=== PATIENT | male | born 1940 | race Caucasian/White ===

== ENCOUNTER 2023-12-31 16:47 | Inpatient (IN) ==
[2023-12-31] MEDS ORDERED: IOPAMIDOL 100 ML BOTTLE IV ONE (16:48)
[2023-12-31] MEDS: morphine 4 MG/ML VIAL IV ONE (17:31)
[2023-12-31] MEDS: ONDANSETRON 4 MG/2 ML VIAL IV ONE (17:34)
[2023-12-31 17:44] LABS: Basophils # (Auto) 0.03 K/mcL (0.00-0.30); Basophils % (Auto) 0.3 % (0.0-2.0); Eosinophils # (Auto) 0.02 K/mcL (0.00-0.70); Eosinophils % (Auto) 0.2 % (0.0-7.0); Hematocrit 35.6 % (40.1-51.0); Hemoglobin 12.2 g/dL (13.7-17.5); Lymphocytes # (Auto) 0.82 K/mcL (1.50-4.80); Lymphocytes % (Auto) 7.4 % (15.5-49.0); Mean Cell Volume 102.3 fL (80.0-100.0); Mean Corpuscular HGB Conc 34.3 g/dL (31.0-36.0); Mean Platelet Volume 9.7 fL (8.8-12.5); Monocytes # (Auto) 0.91 K/mcL (0.10-0.90); Monocytes % (Auto) 8.2 % (1.0-12.0); Neutrophils % (Auto) 83.8 % (38.0-78.0); Platelet Count 245 K/mcL (140-440); RBC 3.48 M/mcL (4.63-6.08); Red Cell Distribution Width 14.2 % (11.5-14.5); WBC 11.1 K/mcL (4.5-11.0)
[2023-12-31 18:00] LABS: ALT/SGPT 22 U/L (<40); AST/SGOT 41 U/L (<40); Albumin 4.1 gm/dL (3.2-5.2); Albumin/Globulin Ratio 1.7 (1.0-2.3); Alkaline Phosphatase 73 U/L (39-117); Bilirubin,Total 0.6 mg/dL (0.1-1.0); Blood Urea Nitrogen 32 mg/dL (8-23); Calcium 9.1 mg/dL (8.6-10.4); Carbon Dioxide 20 mmol/L (22-30); Chloride 100 mmol/L (96-108); Globulin 2.4 gm/dL (2.2-3.7); Glomerular Filtration Rate 70; Glucose 124 mg/dL (70-105); Potassium 4.9 mmol/L (3.3-5.1); Sodium 134 mmol/L (133-145)
[2023-12-31 19:47] LABS: Appearance,Urine Clear (Clear); Bacteria,Urine 0 /hpf (0); Bilirubin,Urine Negative (Negative); Color,Urine Yellow; Culture Indicated,Urine No; Glucose,Urine (UA) Negative (Negative); Ketones,Urine Negative (Negative); Leukocyte Esterase,Urine Negative /uL (Negative); Nitrate,Urine Negative (Negative); Protein,Urine Negative (Negative); Specific Gravity,Urine 1.015 (1.000-1.035); Urine Blood Negative ery/mcL (Negative); Urine RBC 0 /hpf (0-3); Urine Squamous Epithelial Cell 0 /hpf (0-4); Urine WBC 0 /hpf (0-4); Urobilinogen,Urine Normal
[2023-12-31] MEDS: HYDROmorphone 0.5 MG/0.5 ML SYRINGE IV ONE (21:06)
[2023-12-31] MEDS: PANTOPRAZOLE 40 MG VIAL IV SCH (21:08)
[2023-12-31] MEDS: DEXTROSE 5%-LR 1,000 ML IV SCH (21:13)
[2023-12-31] MEDS: PIPERACILLIN SODIUM/TAZOBACTAM 3.375 GM in DEXTROSE 5% IN WATER 100 ML IV SCH (22:26)
[2023-12-31] MEDS: HYDROmorphone 0.5 MG/0.5 ML SYRINGE IV PRN (23:23)
[2024-01-01] MEDS: ACETAMINOPHEN 650 MG/65 ML BAG IV PRN (02:23)
[2024-01-01 07:18] LABS: ALT/SGPT 20 U/L (<40); AST/SGOT 22 U/L (<40); Albumin 4.3 gm/dL (3.2-5.2); Albumin/Globulin Ratio 1.7 (1.0-2.3); Alkaline Phosphatase 86 U/L (39-117); Bilirubin,Total 0.9 mg/dL (0.1-1.0); Blood Urea Nitrogen 28 mg/dL (8-23); Calcium 9.3 mg/dL (8.6-10.4); Carbon Dioxide 23 mmol/L (22-30); Chloride 96 mmol/L (96-108); Globulin 2.6 gm/dL (2.2-3.7); Glomerular Filtration Rate 62; Glucose 159 mg/dL (70-105); Sodium 135 mmol/L (133-145)
[2024-01-01 07:34] LABS: Hematocrit 41.8 % (40.1-51.0); Mean Cell Volume 104.2 fL (80.0-100.0); Mean Corpuscular HGB Conc 33.5 g/dL (31.0-36.0); Mean Platelet Volume 9.5 fL (8.8-12.5); Platelet Count 277 K/mcL (140-440); RBC 4.01 M/mcL (4.63-6.08); Red Cell Distribution Width 14.2 % (11.5-14.5); WBC 14.7 K/mcL (4.5-11.0)
[2024-01-01] MEDS: CIPROFLOXACIN 400 MG/200 ML BAG IV SCH (15:48)
[2024-01-01] MEDS ORDERED: hydrALAZINE 20 MG/ML VIAL IV PRN (16:13)
[2024-01-01] MEDS ORDERED: PROMETHAZINE 50 MG/ML AMPUL IM PRN (17:39)
[2024-01-02 07:03] LABS: Basophils # (Auto) 0.02 K/mcL (0.00-0.30); Basophils % (Auto) 0.2 % (0.0-2.0); Eosinophils # (Auto) 0.03 K/mcL (0.00-0.70); Eosinophils % (Auto) 0.2 % (0.0-7.0); Hematocrit 36.5 % (40.1-51.0); Hemoglobin 12.5 g/dL (13.7-17.5); Lymphocytes # (Auto) 0.63 K/mcL (1.50-4.80); Lymphocytes % (Auto) 4.8 % (15.5-49.0); Mean Cell Volume 102.5 fL (80.0-100.0); Mean Corpuscular HGB Conc 34.2 g/dL (31.0-36.0); Monocytes # (Auto) 1.64 K/mcL (0.10-0.90); Monocytes % (Auto) 12.6 % (1.0-12.0); Neutrophils % (Auto) 81.9 % (38.0-78.0); Platelet Count 257 K/mcL (140-440); RBC 3.56 M/mcL (4.63-6.08); Red Cell Distribution Width 14.3 % (11.5-14.5)
[2024-01-02 07:11] LABS: Phosphorous 2.2 mg/dL (2.5-4.5)
[2024-01-02 07:25] LABS: ALT/SGPT 13 U/L (<40); AST/SGOT 17 U/L (<40); Albumin 3.7 gm/dL (3.2-5.2); Albumin/Globulin Ratio 1.6 (1.0-2.3); Alkaline Phosphatase 75 U/L (39-117); Bilirubin,Total 1.1 mg/dL (0.1-1.0); Blood Urea Nitrogen 21 mg/dL (8-23); Calcium 9.1 mg/dL (8.6-10.4); Carbon Dioxide 26 mmol/L (22-30); Chloride 96 mmol/L (96-108); Globulin 2.3 gm/dL (2.2-3.7); Glomerular Filtration Rate 70; Glucose 147 mg/dL (70-105); Sodium 133 mmol/L (133-145)
[2024-01-02] MEDS ORDERED: fentaNYL 100 MCG/2 ML VIAL ONE (10:31)
[2024-01-02] MEDS ORDERED: PROPOFOL 200 MG/20 ML VIAL IV ONE (10:31)
[2024-01-02] MEDS ORDERED: MIDAZOLAM 2 MG/2 ML VIAL ONE (10:31)
[2024-01-02] MEDS ORDERED: ROCURONIUM 10 MG/ML ML IV ONE (12:14)
[2024-01-02] MEDS ORDERED: SUCCINYLCHOLINE 200 MG/10 ML VIAL IV ONE (12:14)
[2024-01-02] MEDS ORDERED: ETOMIDATE 20 MG/10 ML VIAL IV ONE (12:14)
[2024-01-02] MEDS ORDERED: LIDOCAINE 2% PF 5 ML VIAL ONE (12:14)
[2024-01-02] MEDS ORDERED: MAGNESIUM SULFATE 2 GM/50 ML BAG IV ONE (12:41)
[2024-01-02] MEDS ORDERED: SUGAMMADEX SODIUM 200 MG/2 ML VIAL IV ONE (12:42)
[2024-01-02] MEDS ORDERED: GLYCOPYRROLATE 0.2 MG/ML VIAL IV ONE (12:43)
[2024-01-02] MEDS ORDERED: ONDANSETRON 4 MG/2 ML VIAL IV PRN (12:49)
[2024-01-02] MEDS ORDERED: IPRATROPIUM/ALBUTEROL 3 ML AMPUL.NEB NEB PRN ×2 (12:49→13:45)
[2024-01-02] MEDS: BACITRACIN TOPICAL OINT 15 GM TUBE TOPICAL ONE (13:45)
[2024-01-02] MEDS: fentaNYL 100 MCG/2 ML VIAL IV PRN (13:54)
[2024-01-02] MEDS: HYDROmorphone 0.5 MG/0.5 ML SYRINGE IV PRN (14:07)
[2024-01-03] MEDS: ACETAMINOPHEN 1,000 MG/100 ML BAG IV SCH (00:04)
[2024-01-03 06:36] LABS: Hematocrit 33.2 % (40.1-51.0); Hemoglobin 11.1 g/dL (13.7-17.5); Mean Cell Volume 104.1 fL (80.0-100.0); Mean Corpuscular HGB Conc 33.4 g/dL (31.0-36.0); Mean Platelet Volume 9.7 fL (8.8-12.5); Platelet Count 212 K/mcL (140-440); RBC 3.19 M/mcL (4.63-6.08); Red Cell Distribution Width 14.4 % (11.5-14.5); WBC 8.6 K/mcL (4.5-11.0)
[2024-01-03 07:08] LABS: ALT/SGPT 11 U/L (<40); AST/SGOT 19 U/L (<40); Albumin/Globulin Ratio 1.4 (1.0-2.3); Alkaline Phosphatase 66 U/L (39-117); Bilirubin,Total 0.9 mg/dL (0.1-1.0); Blood Urea Nitrogen 17 mg/dL (8-23); Calcium 8.2 mg/dL (8.6-10.4); Carbon Dioxide 26 mmol/L (22-30); Chloride 98 mmol/L (96-108); Globulin 2.2 gm/dL (2.2-3.7); Glomerular Filtration Rate 79; Glucose 134 mg/dL (70-105); Potassium 3.9 mmol/L (3.3-5.1); Sodium 132 mmol/L (133-145)
[2024-01-04 06:36] LABS: Hematocrit 33.4 % (40.1-51.0); Hemoglobin 11.2 g/dL (13.7-17.5); Mean Corpuscular HGB Conc 33.5 g/dL (31.0-36.0); Mean Platelet Volume 9.5 fL (8.8-12.5); Platelet Count 215 K/mcL (140-440); RBC 3.21 M/mcL (4.63-6.08); Red Cell Distribution Width 14.2 % (11.5-14.5); WBC 7.4 K/mcL (4.5-11.0)
[2024-01-04 07:03] LABS: ALT/SGPT 10 U/L (<40); AST/SGOT 19 U/L (<40); Albumin/Globulin Ratio 1.3 (1.0-2.3); Alkaline Phosphatase 90 U/L (39-117); Bilirubin,Total 0.9 mg/dL (0.1-1.0); Blood Urea Nitrogen 15 mg/dL (8-23); Calcium 8.4 mg/dL (8.6-10.4); Carbon Dioxide 25 mmol/L (22-30); Chloride 98 mmol/L (96-108); Globulin 2.3 gm/dL (2.2-3.7); Glomerular Filtration Rate 79; Glucose 119 mg/dL (70-105); Potassium 3.7 mmol/L (3.3-5.1); Sodium 133 mmol/L (133-145)
[2024-01-04] MEDS: HEPARIN 5,000 UNIT/ML VIAL SQ SCH (21:12)
[2024-01-05] MEDS ORDERED: METHOTREXATE SODIUM 2.5 MG TABLET PO SCH (09:00)
[2024-01-05] MEDS: DEXTROSE 5%-LR 1,000 ML IV SCH (14:05)
[2024-01-06 07:00] LABS: Hemoglobin 11.5 g/dL (13.7-17.5); Mean Cell Volume 103.7 fL (80.0-100.0); Mean Corpuscular HGB Conc 33.8 g/dL (31.0-36.0); Mean Platelet Volume 9.5 fL (8.8-12.5); Platelet Count 256 K/mcL (140-440); RBC 3.28 M/mcL (4.63-6.08); Red Cell Distribution Width 14.1 % (11.5-14.5); WBC 6.3 K/mcL (4.5-11.0)
[2024-01-06 07:53] LABS: Blood Urea Nitrogen 12 mg/dL (8-23); Calcium 8.7 mg/dL (8.6-10.4); Carbon Dioxide 22 mmol/L (22-30); Chloride 101 mmol/L (96-108); Glomerular Filtration Rate 70; Glucose 121 mg/dL (70-105); Potassium 4.1 mmol/L (3.3-5.1); Sodium 135 mmol/L (133-145)
[2024-01-07] MEDS: METOCLOPRAMIDE 10 MG/2 ML VIAL IV SCH (12:14)
[2024-01-07] MEDS: HYDROmorphone 0.5 MG/0.5 ML SYRINGE IV PRN (18:14)
[2024-01-08 06:43] LABS: Basophils # (Auto) 0.07 K/mcL (0.00-0.30); Basophils % (Auto) 1.1 % (0.0-2.0); Eosinophils # (Auto) 0.38 K/mcL (0.00-0.70); Eosinophils % (Auto) 6.2 % (0.0-7.0); Hemoglobin 10.8 g/dL (13.7-17.5); Lymphocytes # (Auto) 1.11 K/mcL (1.50-4.80); Mean Cell Volume 102.9 fL (80.0-100.0); Mean Corpuscular HGB Conc 33.8 g/dL (31.0-36.0); Mean Platelet Volume 9.1 fL (8.8-12.5); Monocytes % (Auto) 21.1 % (1.0-12.0); Neutrophils % (Auto) 53.1 % (38.0-78.0); Platelet Count 238 K/mcL (140-440); RBC 3.11 M/mcL (4.63-6.08); WBC 6.2 K/mcL (4.5-11.0)
[2024-01-08] MEDS ORDERED: GLUCOSAMINE CHONDROITIN PO SCH (09:00)
[2024-01-08] MEDS ORDERED: MULTIVITAMIN MINERALS LUTEIN PO SCH (09:00)
[2024-01-08] MEDS ORDERED: VITAMIN E ACETATE PO SCH (09:00)
[2024-01-08] MEDS: FOLIC ACID 1 MG TABLET PO SCH (10:30)
[2024-01-08] MEDS: LOSARTAN 50 MG TABLET PO SCH (10:30)
[2024-01-08] MEDS: FERROUS SULFATE 325 MG TABLET PO SCH (10:31)
[2024-01-08] MEDS: predniSONE 5 MG TABLET PO SCH (10:31)
[2024-01-08] MEDS: ASCORBIC ACID 500 MG TABLET PO SCH (10:31)
[2024-01-08] MEDS: FINASTERIDE 5 MG TABLET PO SCH (10:31)
[2024-01-08] MEDS: LEVOTHYROXINE 50 MCG TABLET PO SCH (10:31)
[2024-01-09 12:33] VITALS: TEMP 97.7; O2SAT 96
[2024-01-09] MEDS: FUROSEMIDE 40 MG/4 ML VIAL IV SCH (13:54)
== END 2024-01-09 14:20 | disposition home or self-care (01) | DRG 337 ==
LOC: ED 16:47 → MEDSUR 20:38
PROVIDERS: ADMIT Surgery Surgical Critical Care; ATTEND Surgery Surgical Critical Care

== ENCOUNTER 2025-04-23 12:06 | Inpatient (IN) ==
[2025-04-23] MEDS ORDERED: IOPAMIDOL 100 ML BOTTLE IV ONE (12:07)
[2025-04-23 13:06] LABS: Basophils # (Auto) 0.02 K/mcL (0.00-0.30); Basophils % (Auto) 0.2 % (0.0-2.0); Eosinophils # (Auto) 0.11 K/mcL (0.00-0.70); Eosinophils % (Auto) 1.0 % (0.0-7.0); Hematocrit 34.1 % (40.1-51.0); Hemoglobin 11.4 g/dL (13.7-17.5); Lymphocytes # (Auto) 1.29 K/mcL (1.50-4.80); Lymphocytes % (Auto) 12.1 % (15.5-49.0); Mean Corpuscular HGB Conc 33.4 g/dL (31.0-36.0); Monocytes # (Auto) 0.88 K/mcL (0.10-0.90); Monocytes % (Auto) 8.2 % (1.0-12.0); Neutrophils % (Auto) 78.4 % (38.0-78.0); Platelet Count 196 K/mcL (140-440); RBC 3.33 M/mcL (4.63-6.08); WBC 10.7 K/mcL (4.5-11.0)
[2025-04-23 13:24] LABS: ALT/SGPT 24 U/L (<40); AST/SGOT 21 U/L (<40); Albumin 4.0 gm/dL (3.2-5.2); Albumin/Globulin Ratio 1.6 (1.0-2.3); Alkaline Phosphatase 90 U/L (39-117); Anion Gap 11.0 (8.0-16.0); Bilirubin,Total 0.3 mg/dL (0.1-1.0); Blood Urea Nitrogen 34 mg/dL (8-23); Calcium 9.0 mg/dL (8.6-10.4); Carbon Dioxide 23 mmol/L (22-30); Chloride 105 mmol/L (96-108); Globulin 2.5 gm/dL (2.2-3.7); Glucose 114 mg/dL (70-105); Potassium 3.9 mmol/L (3.3-5.1); Sodium 139 mmol/L (133-145)
[2025-04-23] MEDS: 0.9 % SODIUM CHLORIDE 1,000 ML IV ONE (14:23)
[2025-04-23] MEDS ORDERED: hydrALAZINE 20 MG/ML VIAL IV PRN (14:35)
[2025-04-23] MEDS: PYRIDOSTIGMINE BROMIDE 10 MG/2 ML AMPUL IV SCH ×2 (16:55→23:05)
[2025-04-23] MEDS: HYDROmorphone 0.5 MG/0.5 ML SYRINGE IV PRN (16:55)
[2025-04-23] MEDS: METOCLOPRAMIDE 10 MG/2 ML VIAL IV SCH (17:06)
[2025-04-23] MEDS: LACTATED RINGERS 1,000 ML IV SCH (17:07)
[2025-04-24 06:30] LABS: Basophils # (Auto) 0 K/mcL (0.00-0.30); Basophils % (Auto) 0 % (0.0-2.0); Eosinophils # (Auto) 0 K/mcL (0.00-0.70); Eosinophils % (Auto) 0 % (0.0-7.0); Hematocrit 36.6 % (40.1-51.0); Hemoglobin 12.2 g/dL (13.7-17.5); Lymphocytes # (Auto) 0.56 K/mcL (1.50-4.80); Lymphocytes % (Auto) 6.4 % (15.5-49.0); Mean Corpuscular HGB Conc 33.3 g/dL (31.0-36.0); Monocytes # (Auto) 0.09 K/mcL (0.10-0.90); Monocytes % (Auto) 1.0 % (1.0-12.0); Neutrophils % (Auto) 92.5 % (38.0-78.0); Platelet Count 210 K/mcL (140-440); RBC 3.61 M/mcL (4.63-6.08); WBC 8.8 K/mcL (4.5-11.0)
[2025-04-24 06:56] LABS: ALT/SGPT 22 U/L (<40); AST/SGOT 22 U/L (<40); Albumin 3.9 gm/dL (3.2-5.2); Albumin/Globulin Ratio 1.5 (1.0-2.3); Alkaline Phosphatase 105 U/L (39-117); Anion Gap 12.0 (8.0-16.0); Bilirubin,Direct 0.3 mg/dL (<0.3); Bilirubin,Total 0.6 mg/dL (0.1-1.0); Blood Urea Nitrogen 28 mg/dL (8-23); Calcium 8.9 mg/dL (8.6-10.4); Carbon Dioxide 22 mmol/L (22-30); Chloride 105 mmol/L (96-108); Globulin 2.6 gm/dL (2.2-3.7); Glucose 140 mg/dL (70-105); Phosphorous 3.6 mg/dL (2.5-4.5); Potassium 4.1 mmol/L (3.3-5.1); Sodium 139 mmol/L (133-145); Triglycerides 51 mg/dL (<150); Uric Acid 5.5 mg/dL (2.5-8.0)
[2025-04-24 07:28] LABS: INR 1.0 (0.9-1.1); Prothrombin Time 13.9 sec (11.9-14.5)
[2025-04-24] MEDS: PANTOPRAZOLE 40 MG VIAL IV SCH (09:10)
[2025-04-24] MEDS: LACTATED RINGERS 1,000 ML IV SCH (18:15)
[2025-04-24] MEDS: POLYETHYLENE GLYCOL 3350 17 GM PACKET PO SCH (22:26)
[2025-04-25] MEDS: LEVOTHYROXINE 50 MCG TABLET PO SCH (08:02)
[2025-04-25] MEDS: LOSARTAN 50 MG TABLET PO SCH (08:57)
[2025-04-25] MEDS: FINASTERIDE 5 MG TABLET PO SCH (08:58)
[2025-04-26 12:16] VITALS: TEMP 97.7; O2SAT 96
== END 2025-04-26 14:20 | disposition home or self-care (01) ==
LOC: ED 12:06 → MEDSUR 15:46
PROVIDERS: ADMIT Family Medicine Adult Medicine; ATTEND Family Medicine Adult Medicine